=== PATIENT | male | born 1980 | race Caucasian/White ===

== ENCOUNTER 2017-11-20 21:31 | Emergency (ER) | payer MEDICAID ==
--- NOTE | 2017-11-20 22:26 | ED Physician Chart ---
ED Chief Complaint/HPI - Patient Information Date Seen:: 11/20/17 Time Seen:: 22:10 Chief Complaint:: left ankle pain History of Present Illness:: Patient was walking and twisted his left ankle from 3-5 days ago. Patient took his HIV medicines yesterday but not today. Patient to go to the half-way salter at [facility]. Allergies:: Allergies Allergy/AdvReac Type Severity Reaction Status Date / Time No Known Allergies Allergy Verified 11/20/17 22:15 Historian:: Patient Review:: Nurse's Note Reviewed ED Review of Systems - Review of Systems General/Constitutional: No fever, No chills Skin: Skin lesions Head: No headache Eyes: No loss of vision ENT: No earache Neck: No neck pain Cardio Vascular: No chest pain, No palpitations Pulmonary: No SOB GI: No nausea, No vomiting, No diarrhea G/U: No dysuria Musculoskeletal: Bone or joint pain Endocrine: No polyuria Psychiatric: No prior psych history Hematopoietic: No bruising Allergic/Immuno: No urticaria Neurological: No syncope, No focal symptoms ED Past Medical History - Past Medical History Past Medical History: Other (HIV positive) Family History: None Social History: Smoker Surgical History: None Medication: Reviewed Family Medical History - Family Member Mother History Unknown: Yes ED Physical Exam - Physical Examination General/Constitutional: Awake, Well-developed, well-nourished, Alert, No distress, GCS 15, Non-toxic appearing, Ambulatory Head: Atraumatic Eyes: Lids, conjuctiva normal, PERRL, EOMI Skin: No skin lesions Other Skin comments:: Left ankle: Diffuse tenderness; redness of left foot, ankle and lower leg extending about 20 cm proximal to the ankle; 1 1/2 centimeter vesicle medial large toe and medial left heel. ENMT: External ears, nose nl, Nasal exam nl, Lips, teeth, gums nl Neck: Nontender, Full ROM w/o pain, No JVD, No nuchal rigidity, No bruit, No mass, No stridor Respiratory: Nl effort/Exclusion, Clear to Auscultation, No Wheeze/Rhonchi/Rales Cardio Vascular: RRR, No murmur, gallop, rubs, NL S1 S2 GI: No tenderness/rebounding/guarding, No organomegaly, No hernia, Normal BS's, Nondistended, No mass/bruits, No McBurney tenderness : No CVA tenderness Extremities: No tenderness or effusion, Full ROM, normal strength in all extremities, No edema, Normal digits & nails Neuro/Psych: Alert/oriented, DTR's symmetric, Normal sensory exam, Normal motor strength, Judgement/insight normal, Mood normal, Normal gait, No focal deficits Misc: Normal back, No paraspinal tenderness ED Labs/Radiology/EKG Results - Radiology Results Results: X-ray left ankle showing left lower leg normal ED Assessment - Assessment General Assessment: Patient has a cellulitis of the left foot left ankle and left lower leg probably result of bacteria which entered through the blisters on the left large toe and left heel. ED Septic Shock - . Is Septic Shock (SBP<90, OR Lactate>4 mmol\L) present?: No ED Reassessment (Disposition) - Reassessment Reassessment Condition:: Unchanged - Diagnosis Diagnosis:: Infected blisters left foot with cellulitis left lower leg - Aftercare/Follow up Instructions Aftercare/Follow-Up Instructions:: Refer to Discharge Instructions Medication Prescribed:: Keflex 500 mg 4 times a day for 10 days and Bactrim double strength one twice a day for 10 days - Patient Disposition Discharge/Transfer:: Intermediate/Custodial Condition at Disposition:: Stable, Unchanged
[2017-11-20] MEDS ORDERED: Sulfamethoxazole/TMP 800/160mg Tab PO ONE (23:07)
[2017-11-20] MEDS ORDERED: Sulfamethoxazole/TMP 800/160mg Tab ONE (23:20)
--- NOTE | 2017-11-21 09:30 | Diagnostic Imaging Report ---
Left ankle (2 views) HISTORY: Pain, trauma No acute bony abnormalities. No fractures. Soft tissue swelling noted about the ankle region. IMPRESSION: 1. No acute focal bony abnormalities
== END 2017-11-20 23:30 | disposition still patient (30) ==
LOC: ER 21:31
DX: L03.116 Cellulitis of left lower limb (principal); F17.200 Nicotine dependence, unspecified, uncomplicated
CPT/HCPCS: 73600-LT-TC; Z7502; Z7610